=== PATIENT | female | born 1950 | race Caucasian/White ===

== ENCOUNTER 2016-08-05 07:23 | Emergency (ER) | payer BC ==
[2016-08-05 09:13] LABS: RED BLOOD COUNT 4.38 M/UL (4.00-5.10); WHITE BLOOD COUNT 6.9 K/UL (4.5-11.0)
[2016-08-05 09:31] LABS: BUN/CREATININE RATIO 17 (0-10)
== END 2016-08-05 14:35 | disposition short-term general hospital (02) ==
LOC: ER1 07:23
PROVIDERS: Emergency Medicine
DX: D49.6 Neoplasm of unspecified behavior of brain (principal); R07.89 Other chest pain; E87.1 Hypo-osmolality and hyponatremia; E78.5 Hyperlipidemia, unspecified; F17.200 Nicotine dependence, unspecified, uncomplicated; Z79.82 Long term (current) use of aspirin; Z79.899 Other long term (current) drug therapy
CPT/HCPCS: 36415; 70450; 71010; 80053; 84484; 85025; 93005; 99285

== ENCOUNTER → 2021-04-13 | Outpatient (CLI) | payer MEDICARE, BC | LOC: CT 04-01 08:00 | DX: Z00.00 Encounter for general adult medical examination without abnormal findings (principal); I67.1 Cerebral aneurysm, nonruptured; R20.0 Anesthesia of skin | CPT/HCPCS: 36415; 70496; 82565; 84520; Q9967 ==

== ENCOUNTER 2021-11-11 19:19 | Emergency (ER) | payer MEDICARE, BC ==
[2021-11-11 20:11] LABS: HEMOGLOBIN 13.7 gm/dl (12.3-15.3); RED BLOOD COUNT 4.34 M/UL (4.00-5.10); WHITE BLOOD COUNT 7.6 K/UL (4.5-11.0)
[2021-11-11 20:58] LABS: BUN/CREATININE RATIO 20 (0-10)
[2021-11-11] MEDS ORDERED: OMNICEF 300 MG300 MG PO (23:08)
== END 2021-11-12 00:07 | disposition home or self-care (01) ==
LOC: ER1 19:19
PROVIDERS: Physician Assistant
DX: R55 Syncope and collapse (principal); J18.9 Pneumonia, unspecified organism; F17.210 Nicotine dependence, cigarettes, uncomplicated
CPT/HCPCS: 70450; 71045; 80053; 81001; 82550; 82553; 83880; 84484; 85025; 85379; 85610; 85730; 93005; 96374; 99285; J0696; Q9967

== ENCOUNTER 2021-12-10 15:12 | Emergency (ER) | payer MEDICARE, BC ==
[~2021-12-10 15:12] MED LIST: OMNICEF 300 MG300 MG PO
[2021-12-10 15:39] LABS: HEMOGLOBIN 13.6 gm/dl (12.3-15.3); RED BLOOD COUNT 4.3 M/UL (4.00-5.10); WHITE BLOOD COUNT 11.3 K/UL (4.5-11.0)
[2021-12-10 16:07] LABS: BUN/CREATININE RATIO 31 (0-10)
== END 2021-12-10 18:12 | disposition home or self-care (01) ==
LOC: ER1 15:12
PROVIDERS: Physician Assistant
DX: R55 Syncope and collapse (principal); T67.5XXA Heat exhaustion, unspecified, initial encounter; R05.9 Cough, unspecified; F17.210 Nicotine dependence, cigarettes, uncomplicated; Z87.01 Personal history of pneumonia (recurrent); X58.XXXA Exposure to other specified factors, initial encounter
CPT/HCPCS: 70450; 71045; 72125; 80053; 81001; 82550; 82553; 84484; 85025; 93005; 96360; 99284